=== PATIENT | female | born 1955 | race Caucasian/White ===

== ENCOUNTER 2019-12-19 18:13 | Emergency (ER) | payer OTHER ==
[~2019-12-19] VITALS: Ht 152.4 cm; Wt 68.0 kg
[~2019-12-19 18:13] MED LIST: CRESTOR5 MG; HUMALOG MIX 75/10 ML; HYZAAR 50/12.51 TAB; METFORMIN HCL500 MG; RISEDRONATE PO; SYNTHROID88 MCG
[2019-12-19] MEDS ORDERED: SYNTHROID75 MCG (18:23)
[2019-12-19] MEDS ORDERED: PLAVIX75 MG (18:23)
== END 2019-12-19 22:21 | disposition home or self-care (01) ==
LOC: ER 18:13
DX: N39.0 Urinary tract infection, site not specified (principal); B96.29 Other Escherichia coli [E. coli] as the cause of diseases classified elsewhere